=== PATIENT | female | born 1950 | race Caucasian/White ===

== ENCOUNTER 2019-09-04 19:50 | Emergency (ER) | payer MEDICARE, BC ==
[~2019-09-04] VITALS: Ht 165.1 cm; Wt 69.4 kg
--- NOTE | 2019-09-04 20:20 | NUR ---
PT BIB AMBULANCE WITH A C/O GLF FROM A LADDER ONTO THE BATHTUB. PT IS C/O DIZZINESS, BACK, CHEST AND NECK PAIN.
[2019-09-04] MEDS ORDERED: NAPROXEN 250 MG TABLET ONE (23:04)
[2019-09-04 23:11] VITALS: BP 136/75
--- NOTE | 2019-09-04 23:12 | NUR ---
Patient discharged to home in stable condition. Written and verbal after care instructions given. Patient verbalizes understanding of instruction. PT REC'D PAIN MEDICATION PRIOR TO D/C HOME. VSS. PT TAKEN TO THE CAR VIA WC. NAD NOTED.
[2019-09-04] MEDS ORDERED: NAPROXEN 500 MG TABLET PO ONE (23:30)
== END 2019-09-04 23:13 | disposition home or self-care (01) ==
LOC: ER 19:52
DX: S20.219A Contusion of unspecified front wall of thorax, initial encounter (principal); J45.909 Unspecified asthma, uncomplicated; W11.XXXA Fall on and from ladder, initial encounter; Y93.89 Activity, other specified; Y92.89 Other specified places as the place of occurrence of the external cause; Y99.8 Other external cause status
CPT/HCPCS: 70450-TC; 71111-TC; 72125-TC

== ENCOUNTER 2021-02-05 01:42 | Inpatient (IN) | payer MEDICARE, OTHER ==
[~2021-02-05] VITALS: Ht 152.4 cm; Wt 81.2 kg
[2021-02-05] MEDS ORDERED: IV NS 0.9% 1,000 ML BAG IV ONE (02:00)
--- NOTE | 2021-02-05 02:02 | NUR ---
PATIENT TO ER BED 9 C/O DIZZINESS FOR 2x DAYS. PATIENT STATES THAT HER DIZZINESS HAS BEEN ON AND OF SINCE HER CATARACT SURGERY SINCE 2x WEEK AGO. PT C/O NAUSEA AND H/A. PATIENT IS ALERT AND ORIENTED x4. DENIES SHORTNESS OF BREATH. CONNECTED TO THE MONITOR.
--- NOTE | 2021-02-05 02:11 | NUR ---
BLOOD SENT TO THE LAB AND COLLECTED BY PARTS COUNTERPERSON.
[2021-02-05 02:34] LABS: CALCIUM, SERUM 9.2 mg/dL (8.5-10.1); CARBON DIOXIDE 28 mmol/L (21-32); CHLORIDE 104 mmol/L (98-107); CREATININE 0.8 mg/dL (0.6-1.3); GLUCOSE 128 mg/dL (74-106); POTASSIUM 3.3 mmol/L (3.5-5.1); SODIUM SERUM 142 mmol/L (136-145); UREA NITROGEN, BLOOD 17 mg/dL (7-18)
[2021-02-05 02:47] LABS: ALANINE AMINOTRANSFERASE 49 U/L (12-78); ALBUMIN 3.8 g/dL (3.4-5.0); ALKALINE PHOSPHATASE 135 U/L (46-116); ASPARTATE AMINOTRANSFERASE 35 U/L (15-37); BILIRUBIN,DIRECT 0.1 mg/dL (0.0-0.2); BILIRUBIN,TOTAL 0.3 mg/dL (0.2-1.0); TOTAL PROTEIN, SERUM 7.6 g/dL (6.4-8.2)
[2021-02-05] MEDS ORDERED: MECLIZINE HCL 25 MG TABLET ONE (02:51)
[2021-02-05] MEDS ORDERED: ONDANSETRON HCL/PF 4 MG/2 ML VIAL ONE (02:51)
[2021-02-05 02:52] LABS: BASOPHILS % (AUTO) 0.4 % (0.0-2.0); EOSINOPHILS % (AUTO) 2.9 % (0.0-6.0); HEMATOCRIT 40 % (33-45); HEMOGLOBIN 13.1 g/dL (11.5-14.8); LYMPHOCYTES # (AUTO) 2.1 /CMM (0.8-4.8); LYMPHOCYTES % (AUTO) 25.5 % (20.0-44.0); MEAN CORPUSCULAR HGB CONC 33 g/dl (31.0-36.0); MEAN CORPUSCULAR VOLUME 83 fL (82-100); MONOCYTES # (AUTO) 0.6 /CMM (0.1-1.30); MONOCYTES % (AUTO) 7.7 % (2.0-12.0); NEUTROPHILS # (AUTO) 5.1 /CMM (1.8-8.9); NEUTROPHILS % (AUTO) 63.5 % (43.0-81.0); PLATELET COUNT (AUTO) 251 /CMM (150-450); RED BLOOD CELL COUNT(AUTO) 4.81 MIL/uL (4.0-5.2); WHITE BLOOD COUNT (AUTO) 8.1 K/uL (4.3-11.0)
[2021-02-05] MEDS ORDERED: ONDANSETRON HCL/PF - ER 4 MG/2 ML VIAL IV ONE (03:00)
[2021-02-05] MEDS ORDERED: MECLIZINE HCL 12.5 MG TABLET PO ONE (03:00)
--- NOTE | 2021-02-05 04:28 | NUR ---
REPORT GIVEN TO BIC RN FOR JACQUELYN.
[2021-02-05 04:35] VITALS: BP 129/75
[2021-02-05 04:39] LABS: BILIRUBIN,URINE Negative (NEGATIVE); COLOR,URINE YELLOW (YELLOW); LEUKOCYTE ESTERASE ,URINE Negative (NEGATIVE); NITRITE, URINE Negative (NEGATIVE); PROTEIN,URINE Negative (NEGATIVE); UGLUCOSE Negative (NEGATIVE); UROBILINOGEN,URINE 0.2 EU/dL (0.2)
--- NOTE | 2021-02-05 04:40 | NUR ---
PATIENT TAKEN UP TO ROOM FOR JACQUELYN.
--- NOTE | 2021-02-05 05:00 | NUR ---
CASTING WHEEL OPERATOR ADMITTING NOTES: RECEIVED PATIENT FROM ER VIA [facility] TO RM [id number] , PATIENT IS A/OX4 , AMBULATORY WITH ASSISTANCE, CC: ROOM SPINNING SENSATION 2 HR AGO FOR 2 WEEKS SINCE CATARACT SURGERY, FRENCH SPEAKING ABLE TO MAKE NEEDS KNOWN, ON TELE MONITORING WITH READING OF SINUS RYTHM, HR-82, ON ROOM AIR NO SOB NOTED, SKIN ASSESSMENT DONE NO SKIN ISSUES WAS OBSERVED, V/S ARE FOLLOWS: BP-129/75, HR-87, RR-20, TEMP- ORIENTED TO ROOM , PLACED IN BED COMFORTABLY, IN LOW POSITION, CALL LIGHTS WITHIN REACH, REMIND PATIENT TO USE THE CALL LIGHTS WHEN NEEDED ASSISTANCE, WILL CONTINUE TO MONITOR.
[2021-02-05] MEDS ORDERED: MECLIZINE HCL 12.5 MG TABLET PO PRN (07:00)
[2021-02-05] MEDS ORDERED: ONDANSETRON HCL/PF 4 MG/2 ML VIAL IVP PRN (07:00)
--- NOTE | 2021-02-05 07:00 | NUR ---
CYTOGENETICIST CLOSING NOTES: PATIENT WAS PLACED IN BED COMFORTABLY, BED IN LOW POSITION, CALL LIGHTS WITHIN REACH, NO COMPLAIN OF PAIN AND DISCOMFORT AT THIS TIME, PATIENT IS AMBULATORY WITH SUPERVISION, REMIND PATIENT TO USE CALL LIGHTS WHEN NEEDED ASSISTANCE, MEDICATION FOR FOLLOW UP WITH FAMILY AWAITING FOR REPLY, TELE READING WAS SINUS RTHYM HR82, PATIENT KEPT CLEAN AND DRY, ALL NEEDS MET ENDORSE TO INCOMING SHIFT.
--- NOTE | 2021-02-05 07:30 | NUR ---
MS OFFICE MACHINE INSPECTOR NOTES: PATIENT WAS PLACED IN BED COMFORTABLY. AWAKE AND VERBALLY RESPONSIVE, NO COMPLAIN OF PAIN AND DISCOMFORT AT THIS TIME, BED IN LOW POSITION, CALL LIGHTS WITHIN REACH, MEDICATION LIST FOR FOLLOW UP WITH FAMILY () FOR MED RECON AWAITING FOR CALL BACK, PATIENT WAS KEPT CLEAN AND DRY, WILL CONTINUE TO MONITOR.
[2021-02-05 08:00] VITALS: BP 136/77
[2021-02-05] MEDS: DOCUSATE SODIUM 100 MG CAPSULE PO SCH ×2 (08:16→16:04)
[2021-02-05] MEDS: ACETAMINOPHEN 325 MG TABLET PO PRN (08:16)
[2021-02-05] MEDS: PANTOPRAZOLE 40 MG TABLET.DR PO SCH (08:16)
[2021-02-05] MEDS ORDERED: POTASSIUM CHLORIDE 20 MEQ TAB.PRT.SR PO SCH ×2 (10:30→12:00)
[2021-02-05 11:42] VITALS: BP 132/77
[2021-02-05] MEDS ORDERED: PANT40TA49 PO (11:56)
[2021-02-05] MEDS ORDERED: ASPI-1420 PO (11:56)
[2021-02-05] MEDS ORDERED: PROP15DR EACHEYE (11:56)
[2021-02-05] MEDS ORDERED: MONT10TA22 PO (11:56)
[2021-02-05] MEDS ORDERED: ESCI10TA PO (11:56)
[2021-02-05] MEDS ORDERED: NAPR-1009 PO (11:56)
[2021-02-05] MEDS ORDERED: AZEL137S7 (11:56)
[2021-02-05] MEDS ORDERED: ALBU18HF2 INH (11:56)
[2021-02-05] MEDS ORDERED: CYCL10TA9 PO (11:56)
[2021-02-05] MEDS ORDERED: FLUT16SP16 (11:56)
[2021-02-05] MEDS ORDERED: ROSU10TA29 PO (11:56)
[2021-02-05 16:00] VITALS: BP 122/72
--- NOTE | 2021-02-05 18:08 | NUR ---
TELE CLOSING NOTE PATIENT IN BED COMFORTABLY, BED IN LOW POSITION, CALL LIGHTS WITHIN REACH, NO COMPLAIN OF PAIN AND DISCOMFORT AT THIS TIME, PATIENT IS AMBULATORY WITH SUPERVISION, REMIND PATIENT TO USE CALL LIGHTS WHEN NEEDED ASSISTANCE, MED RECON DONE TELE READING WAS SINUS RTHYM HR82, PATIENT KEPT CLEAN AND DRY, ALL NEEDS MET
[2021-02-05] MEDS ORDERED: CT SWABBABLE VALVE TRANS SET 1 EA INFUS.SET MC ONE (19:08)
[2021-02-05] MEDS ORDERED: IOHEXOL-350 100 ML VIAL IV ONE (19:08)
--- NOTE | 2021-02-05 19:15 | NUR ---
RN OPENING NOTE PATIENT IN BED, AWAKE, A/O X 4. PATIENT ABLE TO MAKE NEEDS KNOWN. NO COMPLAINS OF DIZZINESS AT THIS TIME. BREATHING EVEN AND UNLABORED, TOLERATES RA AT 98% O2 SATURATION. SAFETY MEASURES IN PLACE: BED IN LOCKED AND LOWEST POSITION, CALL LIGHT WITHIN REACH, AMBULATORY DEVICE AT BEDSIDE, SIDE RAILS UP. PATIENT ABOUT TO GO DOWN TO COMPLETE CTA CAROTID. WILL MONITOR PATIENT CLOSELY.
[2021-02-05 20:00] VITALS: BP 124/71
[2021-02-06] VITALS: BP 134/72
--- NOTE | 2021-02-06 | NUR ---
ORTHOSTATIC BP DONE PATIENT REPORTS DIZZINESS UPON SITTING UP LAYING DOWN: 136/70 HR: 72 SITTIN/74 HR:98 STANDIN/79 HR: 97 DR. QUINONEZ MADE AWARE OF THE RESULT
[2021-02-06 04:00] VITALS: BP 140/60
[2021-02-06 05:55] LABS: BASOPHILS % (AUTO) 0.6 % (0.0-2.0); EOSINOPHILS % (AUTO) 4.4 % (0.0-6.0); HEMATOCRIT 38 % (33-45); HEMOGLOBIN 12.7 g/dL (11.5-14.8); LYMPHOCYTES % (AUTO) 35.3 % (20.0-44.0); MEAN CORPUSCULAR HGB CONC 33 g/dl (31.0-36.0); MEAN CORPUSCULAR VOLUME 83 fL (82-100); MONOCYTES # (AUTO) 0.5 /CMM (0.1-1.30); MONOCYTES % (AUTO) 8.6 % (2.0-12.0); NEUTROPHILS # (AUTO) 2.9 /CMM (1.8-8.9); NEUTROPHILS % (AUTO) 51.1 % (43.0-81.0); PLATELET COUNT (AUTO) 226 /CMM (150-450); RED BLOOD CELL COUNT(AUTO) 4.62 MIL/uL (4.0-5.2); WHITE BLOOD COUNT (AUTO) 5.6 K/uL (4.3-11.0)
[2021-02-06 06:36] LABS: ALANINE AMINOTRANSFERASE 37 U/L (12-78); ALBUMIN 3.3 g/dL (3.4-5.0); ALKALINE PHOSPHATASE 107 U/L (46-116); ASPARTATE AMINOTRANSFERASE 22 U/L (15-37); BILIRUBIN,TOTAL 0.5 mg/dL (0.2-1.0); CALCIUM, SERUM 8.6 mg/dL (8.5-10.1); CARBON DIOXIDE 26 mmol/L (21-32); CHLORIDE 106 mmol/L (98-107); CREATININE 0.9 mg/dL (0.6-1.3); GLUCOSE 98 mg/dL (74-106); MAGNESIUM 1.9 mg/dL (1.8-2.4); PHOSPHORUS 4.3 mg/dL (2.5-4.9); POTASSIUM 3.7 mmol/L (3.5-5.1); SODIUM SERUM 140 mmol/L (136-145); TOTAL PROTEIN, SERUM 6.6 g/dL (6.4-8.2); UREA NITROGEN, BLOOD 15 mg/dL (7-18)
[2021-02-06 06:50] LABS: CHOLESTEROL 147 mg/dL (<200); HDL CHOLESTEROL 69 mg/dL (40-60); LDL 61 mg/dL (0-99); THYROID STIMULATING HORMONE 1.102 uIU/mL (0.358-3.74); TRIGLYCERIDES 77 mg/dL (30-150)
--- NOTE | 2021-02-06 06:56 | NUR ---
RN CLOSING NOTE PATIENT SEEN AMBULATING TO THE BATHROOM, DOES NOT COMPLAIN OF PAIN OR NAUSEA AT THIS TIME. PATIENT BREATHING EVEN AND UNLABORED, TOLERATING ROOM AIR. TELE MONITOR READS SR 71 BPM. SAFETY MEASURES MAINTAINED. ALL ORDERS CARRIED OUT. ALL NEEDS MET AND ATTENDED. WILL ENDORSE TO DAY SHIFT NURSE FOR JACQUELYN.
--- NOTE | 2021-02-06 07:23 | NUR ---
HEEL SEAT LASTER OPENING NOTE PATIENT RECIEVED IN BED, NO C/O PAIN OR NAUSEA AT THIS TIME. PATIENT BREATHING EVEN AND UNLABORED, TOLERATING ROOM AIR. TELE MONITOR READS SR 75 BPM. SAFETY MEASURES IN PLACE, ALL NEEDS MET AND ATTENDED. CALL LIGHT WITHIN REACH AND ANSWERED PROPMPTLY.
[2021-02-06 08:00] VITALS: BP 144/79
[2021-02-06] MEDS: PANTOPRAZOLE 40 MG TABLET.DR PO SCH (08:08)
[2021-02-06] MEDS: DOCUSATE SODIUM 100 MG CAPSULE PO SCH ×2 (08:08→16:08)
[2021-02-06] MEDS: ACETAMINOPHEN 325 MG TABLET PO PRN (10:10)
[2021-02-06 12:00] VITALS: BP 129/79
[2021-02-06 16:00] VITALS: BP 140/70
[2021-02-06] MEDS ORDERED: methylPREDNISolone DOSPAK(4MG) 1 PACK TAB.DS.PK PO ONE (16:30)
[2021-02-06] MEDS ORDERED: methylPREDNISolone (4MG) 4 MG TABLET (DAY #1) PO ONE (16:30)
[2021-02-06] MEDS: VALPROATE 250 MG in IV D5W 100 ML IV SCH ×2 (16:38→22:00)
[2021-02-06] MEDS ORDERED: SUMATRIPTAN SUCCINATE 25 MG TABLET PO ONE (17:00)
[2021-02-06] MEDS ORDERED: methylPREDNISolone (4MG) 4 MG TABLET (DAY #1, BEFORE DINNER) PO ONE (17:30)
--- NOTE | 2021-02-06 17:59 | NUR ---
TEAMSITE DEVELOPER CLOSING NOTE PATIENT IN BED RESTING , NO C/O PAIN OR NAUSEA OR HEADACHE AT THIS TIME AFTER SUMATRIPTAN ADMINISTRATION. PATIENT BREATHING EVEN AND UNLABORED, TOLERATING ROOM AIR. TELE MONITOR READS SR 75 BPM. SAFETY MEASURES IN PLACE, ALL NEEDS MET AND ATTENDED. CALL LIGHT WITHIN REACH AND ANSWERED PROPMPTLY.
--- NOTE | 2021-02-06 19:30 | NUR ---
RN OPENING NOTE PATIENT UP ON THE CHAIR, AWAKE, A/O X 4, FAMILY AT BEDSIDE. PATIENT ABLE TO MAKE NEEDS KNOWN. NO COMPLAINS OF DIZZINESS OR HEADACHE AT THIS TIME. BREATHING EVEN AND UNLABORED, TOLERATING ROOM AIR. TELE MONITOR READS SR 87 BPM. SAFETY MEASURES IN PLACE: BED IN LOCKED AND LOWEST POSITION, CALL LIGHT WITHIN REACH, AMBULATORY DEVICE AT BEDSIDE, SIDE RAILS UP. WILL MONITOR PATIENT CLOSELY.
[2021-02-06 20:00] VITALS: BP 144/75
[2021-02-06] MEDS ORDERED: methylPREDNISolone (4MG) 4 MG TABLET (DAY #1, HS) PO ONE (22:00)
[2021-02-07] VITALS (7 sets, daily range): BP systolic 134–150; BP diastolic 71–89
[2021-02-07] MEDS: VALPROATE 250 MG in IV D5W 100 ML IV SCH ×3 (04:41→22:13)
[2021-02-07 06:45] LABS: BASOPHILS % (AUTO) 0.1 % (0.0-2.0); HEMATOCRIT 42 % (33-45); LYMPHOCYTES # (AUTO) 0.9 /CMM (0.8-4.8); LYMPHOCYTES % (AUTO) 10.2 % (20.0-44.0); MEAN CORPUSCULAR HGB CONC 33 g/dl (31.0-36.0); MEAN CORPUSCULAR VOLUME 82 fL (82-100); MONOCYTES # (AUTO) 0.1 /CMM (0.1-1.30); MONOCYTES % (AUTO) 1.3 % (2.0-12.0); NEUTROPHILS # (AUTO) 7.9 /CMM (1.8-8.9); NEUTROPHILS % (AUTO) 88.4 % (43.0-81.0); PLATELET COUNT (AUTO) 297 /CMM (150-450); RED BLOOD CELL COUNT(AUTO) 5.14 MIL/uL (4.0-5.2); WHITE BLOOD COUNT (AUTO) 8.9 K/uL (4.3-11.0)
[2021-02-07 07:09] LABS: CALCIUM, SERUM 9.4 mg/dL (8.5-10.1); CREATININE 0.9 mg/dL (0.6-1.3); PHOSPHORUS 4.6 mg/dL (2.5-4.9); POTASSIUM 4.1 mmol/L (3.5-5.1)
--- NOTE | 2021-02-07 07:23 | NUR ---
RN CLOSING NOTE PATIENT AWAKE, A/O X 4, FAMILY AT BEDSIDE. NO COMPLAINS OF DIZZINESS OR HEADACHE AT THIS TIME. BREATHING EVEN AND UNLABORED, TOLERATING ROOM AIR. TELE MONITOR READS SR 81 BPM. SAFETY MEASURES MAINTAINED. ALL NEEDS MET AND ATTENDED. ALL ORDERS CARRIED OUT. ENDORSED TO DAY SHIFT NURSE FOR JACQUELYN.
[2021-02-07] MEDS ORDERED: methylPREDNISolone (4MG) 4 MG TABLET (DAY#2 ACB) PO ONE (07:30)
[2021-02-07] MEDS: PANTOPRAZOLE 40 MG TABLET.DR PO SCH (08:03)
--- NOTE | 2021-02-07 08:25 | NUR ---
PATROL SERGEANT OPENING NOTE RECEIVED PATIENT IN BED. A/O X4. ON ROOM AIR, NO SOB NOTED. IN NO APPARENT DISTRESS. TELE READING SHOWS ST 104. DENIES ANY PAIN OR DISCOMFORT AT THIS TIME. IV ACCESS ON L AC #18, INTACT. SAFETY MEASURES MAINTAINED. BED IN LOWEST POSITION, BRAKES LOCKED. SIDE RAILS UP X2. CALL LIGHT WITHIN REACH. WILL CONTINUE PLAN OF CARE.
[2021-02-07] MEDS: DOCUSATE SODIUM 100 MG CAPSULE PO SCH ×2 (09:15→16:34)
[2021-02-07] MEDS ORDERED: methylPREDNISolone (4MG) 4 MG TABLET (DAY#2,PC LUNCH) PO ONE (12:30)
--- NOTE | 2021-02-07 12:59 | NUR ---
RN NOTE PATIENT WAS BROUGHT DOWN FOR US GUIDED THYROID BIOPSY
--- NOTE | 2021-02-07 14:35 | NUR ---
RN NOTE PATIENT IS BACK ON HER ROOM
[2021-02-07] MEDS: ACETAMINOPHEN 325 MG TABLET PO PRN (14:53)
[2021-02-07] MEDS: SUMATRIPTAN SUCCINATE 25 MG TABLET PO PRN (16:35)
[2021-02-07] MEDS ORDERED: methylPREDNISolone (4MG) 4 MG TABLET (DAY#2, PC DINNER) PO ONE (17:30)
--- NOTE | 2021-02-07 18:14 | NUR ---
MS RN CLOSING NOTE PATIENT RESTING IN BED. A/O X4. ON ROOM AIR, NO SOB NOTED. NO S/S OF RESPIRATORY DISTRESS. NO REPORTS OF ANY PAIN OR DISCOMFORT AT THIS TIME. IV ACCESS ON L AC #18, INTACT AND PATENT. IMITREX PRN GIVEN AT 1635 FOR HEADACHE. ALL DUE MEDS GIVEN ORDERED. ABLE TO MAKE NEEDS KNOWN. SAFETY MEASURES MAINTAINED. BED IN LOWEST POSITION, BRAKES LOCKED. SIDE RAILS UP X2. CALL LIGHT WITHIN REACH. WILL ENDORSE CONTINUITY OF CARE TO ONCOMING SHIFT.
--- NOTE | 2021-02-07 19:21 | NUR ---
MS RN: CONTINUITY OF CARE Patient in bed, awake, A/O x4. Tolerating room air, no c/o shortness of breath. Independent with ADL's/ mobility, no c/o dizziness, denies headache. Maintained safety.
[2021-02-07] MEDS ORDERED: methylPREDNISolone (4MG) 4 MG TABLET (DAY#2, HS) PO ONE (21:00)
[2021-02-08] MEDS: VALPROATE 250 MG in IV D5W 100 ML IV SCH ×2 (05:32→13:27)
--- NOTE | 2021-02-08 06:23 | NUR ---
MS RN: END OF SHIFT REPORT Patient in bed. No episode of headache in the last 11 hours. On Medrol pack/Depacon IV/Imitrex PRN for treatment of headache. Ambulates independently, no episode of dizziness, no c/o pain. Will endorse to oncoming RN.
[2021-02-08 07:24] LABS: BASOPHILS % (AUTO) 0.2 % (0.0-2.0); HEMATOCRIT 42 % (33-45); LYMPHOCYTES # (AUTO) 1.3 /CMM (0.8-4.8); LYMPHOCYTES % (AUTO) 11.5 % (20.0-44.0); MEAN CORPUSCULAR HGB CONC 34 g/dl (31.0-36.0); MEAN CORPUSCULAR VOLUME 82 fL (82-100); MONOCYTES # (AUTO) 0.5 /CMM (0.1-1.30); MONOCYTES % (AUTO) 4.5 % (2.0-12.0); NEUTROPHILS # (AUTO) 9.2 /CMM (1.8-8.9); NEUTROPHILS % (AUTO) 83.8 % (43.0-81.0); PLATELET COUNT (AUTO) 310 /CMM (150-450); RED BLOOD CELL COUNT(AUTO) 5.08 MIL/uL (4.0-5.2); WHITE BLOOD COUNT (AUTO) 10.9 K/uL (4.3-11.0)
[2021-02-08] MEDS ORDERED: methylPREDNISolone (4MG) 4 MG TABLET (DAY#3,ACB) PO ONE (07:30)
--- NOTE | 2021-02-08 07:30 | NUR ---
PT RECEIVED RESTING COMFORTABLY IN BED. NO S/S OR C/O PAIN OR DISTRESS NOTED. SIDE RAILS UP X2, CALL LIGHT LEFT WITHIN REACH. WILL CONTINUE PLAN OF CARE.
[2021-02-08 07:31] LABS: ALBUMIN 3.7 g/dL (3.4-5.0); BILIRUBIN,TOTAL 0.4 mg/dL (0.2-1.0); CALCIUM, SERUM 9.2 mg/dL (8.5-10.1); CREATININE 0.9 mg/dL (0.6-1.3); PHOSPHORUS 4.5 mg/dL (2.5-4.9); POTASSIUM 4.1 mmol/L (3.5-5.1)
[2021-02-08] MEDS: PANTOPRAZOLE 40 MG TABLET.DR PO SCH (07:43)
[2021-02-08] MEDS: DOCUSATE SODIUM 100 MG CAPSULE PO SCH (07:43)
[2021-02-08] MEDS: SUMATRIPTAN SUCCINATE 25 MG TABLET PO PRN (07:43)
[2021-02-08] MEDS: ACETAMINOPHEN 325 MG TABLET PO PRN (11:17)
[2021-02-08] MEDS ORDERED: methylPREDNISolone (4MG) 4 MG TABLET (DAY#3,PC LUNCH) PO ONE (12:30)
[2021-02-08] MEDS ORDERED: SUMATRIPTAN SUCCINATE 100 MG TABLET PO STA (15:31)
--- NOTE | 2021-02-08 16:48 | NUR ---
DISCHARGE INSTRUCTIONS GIVEN ORDERED. ENCOURAGED TO FOLLOW UP WITH PMD INSTRUCTED. ALL QUESTIONS AND CONCERNS ADDRESSED, PATIENT VERBALIZED UNDERSTANDING. MEDICATION RECONCILIATION FORM COMPLETED. COPY GIVE TO PATIENT. IV REMOVED WITH CATHETER INTACT, PRESSURE DRESSING APPLIED. PATIENT TAKEN TO VEHICLE VIA WHEELCHAIR WITH ALL PERSONAL BELONGINGS, ACCOMPANIED BY STAFF AND FAMILY MEMBER. NO DISTRESS NOTED AT TIME OF DEPARTURE.
[2021-02-08] MEDS ORDERED: methylPREDNISolone (4MG) 4 MG TABLET (DAY#3,PC DINNER) PO ONE (17:30)
[2021-02-08] MEDS ORDERED: methylPREDNISolone (4MG) 4 MG TABLET (DAY#3, HS) PO ONE (22:00)
[2021-02-09] MEDS ORDERED: methylPREDNISolone (4MG) 4 MG TABLET (DAY #4, ACB) PO ONE (07:30)
[2021-02-09] MEDS ORDERED: methylPREDNISolone (4MG) 4 MG TABLET (DAY #4, PC LUNCH) PO ONE (12:30)
[2021-02-09] MEDS ORDERED: methylPREDNISolone (4MG) 4 MG TABLET (DAY#4 HS) PO ONE (22:00)
[2021-02-10] MEDS ORDERED: methylPREDNISolone (4MG) 4 MG TABLET (DAY#5, ACB) PO ONE (07:30)
[2021-02-10] MEDS ORDERED: methylPREDNISolone (4MG) 4 MG TABLET (DAY#5,HS) PO ONE (22:00)
[2021-02-11] MEDS ORDERED: methylPREDNISolone (4MG) 4 MG TABLET (DAY#6,ACB) PO ONE (07:30)
== END 2021-02-08 16:45 | disposition home or self-care (01) | DRG 103 ==
LOC: ER 01:45 → MED 04:19 → TELE 04:46 → MED 02-07 12:03
PROVIDERS: ADMIT Student in an Organized Health Care Education/Training Program
PROC: 0G9G3ZX Drainage of Left Thyroid Gland Lobe, Percutaneous Approach, Diagnostic (ICD-10-PCS; principal; 2021-02-07)
DX: G43.109 Migraine with aura, not intractable, without status migrainosus (principal); J45.909 Unspecified asthma, uncomplicated; E87.6 Hypokalemia; H26.9 Unspecified cataract; E04.1 Nontoxic single thyroid nodule; Z20.822 Contact with and (suspected) exposure to COVID-19
CPT/HCPCS: 10021; 36415; 70450-TC; 70496-TC; 70498-TC; 71045-TC; 76536-TC; 76942-TC; 80048-TC; 80053-TC; 80061-TC; 80076-TC; 83735-TC; 83880; 84100-TC; 84443-TC; 84484-TC; 85025-TC; 85730-TC; 87081-TC; 87086-TC; 88173-TC; 88305-TC; 93307-TC; 93880-TC; C9803; G0378; J2405; J3490; J7030; J7050; J7060; J7509; J8597; Q9967

== ENCOUNTER 2024-08-03 17:31 | Emergency (ER) | payer MEDICARE, OTHER ==
[~2024-08-03] VITALS: Ht 165.1 cm; Wt 83.9 kg
[~2024-08-03 17:31] MED LIST: ALBU18HF2 INH; ASPI-1420 PO; AZEL137S7; CYCL10TA9 PO; ESCI10TA PO; FLUT16SP16; MONT10TA22 PO; NAPR-1009 PO; PANT40TA49 PO; PROP15DR EACHEYE; ROSU10TA29 PO
[2024-08-03 17:49] VITALS: TEMP 98.1
[2024-08-03] MEDS ORDERED: PANTOPRAZOLE 40 MG VIAL ONE (18:08)
[2024-08-03] MEDS ORDERED: ALPRAZOLAM 0.25 MG TABLET ONE (18:09)
[2024-08-03] MEDS ORDERED: FAMOTIDINE/PF INJ 20 MG/2 ML VIAL IV ONE (18:09)
[2024-08-03] MEDS ORDERED: ONDANSETRON HCL/PF 4 MG/2 ML VIAL ONE (18:09)
[2024-08-03] MEDS: ALPRAZOLAM 0.25 MG TABLET PO ONE (18:19)
[2024-08-03] MEDS: ONDANSETRON HCL/PF 4 MG/2 ML VIAL IVP ONE (18:19)
[2024-08-03] MEDS: IV NS 0.9% 1,000 ML BAG IV ONE (18:20)
[2024-08-03] MEDS: PANTOPRAZOLE 40 MG VIAL IV ONE (18:20)
[2024-08-03] MEDS: FAMOTIDINE/PF INJ 20 MG/2 ML VIAL IV ONE (18:23)
[2024-08-03 18:33] LABS: BASOPHILS # (AUTO) 0.1 K/uL (0.0-0.2); BASOPHILS % (AUTO) 0.6 % (0.0-2.0); EOSINOPHILS # (AUTO) 0.2 K/uL (0.0-0.7); HEMATOCRIT 40 % (33-45); HEMOGLOBIN 13.2 g/dL (11.5-14.8); LYMPHOCYTES # (AUTO) 1.3 K/uL (0.8-4.8); LYMPHOCYTES % (AUTO) 13.6 % (20.0-44.0); MEAN CORPUSCULAR HEMOGLOBIN 27 PG (26.0-33.0); MEAN CORPUSCULAR HGB CONC 33 g/dl (31.0-36.0); MEAN CORPUSCULAR VOLUME 81 fL (82-100); MONOCYTES # (AUTO) 0.6 K/uL (0.1-1.30); MONOCYTES % (AUTO) 6.8 % (2.0-12.0); NEUTROPHILS # (AUTO) 7.3 K/uL (1.8-8.9); PLATELET COUNT (AUTO) 276 K/uL (150-450); RED CELL DISTRIBUTION WIDTH 13.8 % (11.5-15.0); WHITE BLOOD COUNT (AUTO) 9.5 K/uL (4.3-11.0)
[2024-08-03] MEDS ORDERED: MAG HYDROX/AL HYDROX/SIMETH 30 ML UDC ONE (18:34)
[2024-08-03] MEDS ORDERED: LIDOCAINE VISCOUS 2% UD 15 ML UDC ONE (18:34)
[2024-08-03] MEDS: MAG HYDROX/AL HYDROX/SIMETH 30 ML UDC PO ONE (18:45)
[2024-08-03] MEDS: LIDOCAINE VISCOUS 2% UD 15 ML UDC MM ONE (18:45)
[2024-08-03 18:47] LABS: CALCIUM, SERUM 8.9 mg/dL (8.5-10.1); CARBON DIOXIDE 30 mmol/L (21-32); CHLORIDE 104 mmol/L (98-107); CREATININE 0.9 mg/dL (0.6-1.3); GLUCOSE 136 mg/dL (74-106); POTASSIUM 3.8 mmol/L (3.5-5.1); SODIUM SERUM 140 mmol/L (136-145); UREA NITROGEN, BLOOD 15 mg/dL (7-18)
[2024-08-03 18:52] LABS: ALANINE AMINOTRANSFERASE 25 U/L (12-78); ALBUMIN 3.6 g/dL (3.4-5.0); ALKALINE PHOSPHATASE 108 U/L (46-116); ASPARTATE AMINOTRANSFERASE 20 U/L (15-37); BILIRUBIN,DIRECT 0.1 mg/dL (0.0-0.2); BILIRUBIN,TOTAL 0.4 mg/dL (0.2-1.0); LIPASE 14 U/L (16-77); TOTAL PROTEIN, SERUM 7.4 g/dL (6.4-8.2)
[2024-08-03 18:59] LABS: LACTIC ACID 2.5 mmol/L (0.4-2.0)
[2024-08-03 21:16] LABS: COLOR,URINE STRAW (YELLOW)
[2024-08-03 21:17] LABS: APPEARANCE,URINE CLEAR (CLEAR); BILIRUBIN,URINE NEGATIVE (NEGATIVE); BLOOD, URINE NEGATIVE Ery/uL (NEGATIVE); KETONES,URINE NEGATIVE (NEGATIVE); LEUKOCYTE ESTERASE ,URINE NEGATIVE (NEGATIVE); NITRITE, URINE NEGATIVE (NEGATIVE); PROTEIN,URINE NEGATIVE (NEGATIVE); UGLUCOSE NEGATIVE (NEGATIVE); UROBILINOGEN,URINE 0.2 EU/dL (0.2)
[2024-08-03] MEDS ORDERED: HYDR-500 PO (22:07)
[2024-08-03] MEDS ORDERED: DICY10CA37 PO (22:07)
[2024-08-03] MEDS ORDERED: FAMO-131 PO (22:07)
[2024-08-03] MEDS ORDERED: KETOROLAC TROMETHAMINE 15 MG/ML VIAL ONE (22:27)
[2024-08-03] MEDS: KETOROLAC TROMETHAMINE 15 MG/ML VIAL IV ONE (22:32)
[2024-08-03 23:15] VITALS: BP 156/88; O2SAT 98
== END 2024-08-03 22:45 | disposition home or self-care (01) ==
LOC: ER 17:34
DX: K21.9 Gastro-esophageal reflux disease without esophagitis (principal); R10.13 Epigastric pain; F41.9 Anxiety disorder, unspecified; J06.9 Acute upper respiratory infection, unspecified; B97.89 Other viral agents as the cause of diseases classified elsewhere; I10 Essential (primary) hypertension; R94.31 Abnormal electrocardiogram [ECG] [EKG]; Z79.82 Long term (current) use of aspirin; Z79.899 Other long term (current) drug therapy
CPT/HCPCS: 99285; 74176; 96374; 96375; 71045; 96361; 93005; 85025; 80048; 87086; 83605 ×2; 83690; 80076; 81003; 36415; 84484; J3490; J2405; J7030; J2470; J1885

== ENCOUNTER 2024-08-08 01:58 | Emergency (ER) | payer MEDICARE, OTHER ==
[~2024-08-08] VITALS: Ht 165.1 cm; Wt 75.7 kg
[~2024-08-08 01:58] MED LIST changes: +DICY10CA37 PO; +FAMO-131 PO; +HYDR-500 PO
[2024-08-08] MEDS: KETOROLAC TROMETHAMINE 15 MG/ML VIAL IM ONE (03:00)
[2024-08-08 03:01] LABS: BASOPHILS % (AUTO) 0.6 % (0.0-2.0); EOSINOPHILS # (AUTO) 0.3 K/uL (0.0-0.7); EOSINOPHILS % (AUTO) 3.8 % (0.0-6.0); HEMATOCRIT 43 % (33-45); LYMPHOCYTES # (AUTO) 1.6 K/uL (0.8-4.8); LYMPHOCYTES % (AUTO) 19.2 % (20.0-44.0); MEAN CORPUSCULAR HEMOGLOBIN 27 PG (26.0-33.0); MEAN CORPUSCULAR HGB CONC 33 g/dl (31.0-36.0); MEAN CORPUSCULAR VOLUME 84 fL (82-100); MONOCYTES # (AUTO) 0.9 K/uL (0.1-1.30); MONOCYTES % (AUTO) 10.2 % (2.0-12.0); NEUTROPHILS # (AUTO) 5.6 K/uL (1.8-8.9); NEUTROPHILS % (AUTO) 66.2 % (43.0-81.0); PLATELET COUNT (AUTO) 294 K/uL (150-450); RED BLOOD CELL COUNT(AUTO) 5.11 MIL/uL (4.0-5.2); RED CELL DISTRIBUTION WIDTH 13.8 % (11.5-15.0); WHITE BLOOD COUNT (AUTO) 8.4 K/uL (4.3-11.0)
[2024-08-08] MEDS ORDERED: KETOROLAC TROMETHAMINE 15 MG/ML VIAL ONE (03:12)
[2024-08-08 03:14] LABS: ALANINE AMINOTRANSFERASE 27 U/L (12-78); ALBUMIN 3.6 g/dL (3.4-5.0); ALKALINE PHOSPHATASE 126 U/L (46-116); ASPARTATE AMINOTRANSFERASE 21 U/L (15-37); BILIRUBIN,DIRECT 0.1 mg/dL (0.0-0.2); BILIRUBIN,TOTAL 0.3 mg/dL (0.2-1.0); CARBON DIOXIDE 29 mmol/L (21-32); CHLORIDE 102 mmol/L (98-107); CREATININE 1.1 mg/dL (0.6-1.3); GLUCOSE 128 mg/dL (74-106); LIPASE 14 U/L (16-77); POTASSIUM 3.7 mmol/L (3.5-5.1); SODIUM SERUM 139 mmol/L (136-145); TOTAL PROTEIN, SERUM 7.5 g/dL (6.4-8.2); UREA NITROGEN, BLOOD 11 mg/dL (7-18)
[2024-08-08 04:58] LABS: APPEARANCE,URINE Clear (CLEAR); BILIRUBIN,URINE Negative (NEGATIVE); BLOOD, URINE Trace-lysed Ery/uL (NEGATIVE); COLOR,URINE YELLOW (YELLOW); KETONES,URINE Negative (NEGATIVE); LEUKOCYTE ESTERASE ,URINE Small (NEGATIVE); NITRITE, URINE Negative (NEGATIVE); PROTEIN,URINE Negative (NEGATIVE); UGLUCOSE Negative (NEGATIVE); UROBILINOGEN,URINE 0.2 EU/dL (0.2)
[2024-08-08 05:16] LABS: ADD URINE CULTURE YES; BACTERIA,URINE 1+ /HPF (None Seen); RBC,URINE 0-2 /HPF (0-2)
[2024-08-08] MEDS ORDERED: CEFTRIAXONE 1GM BAG (ER ONLY) 50 ML IV ONE (05:22)
[2024-08-08] MEDS: CEFTRIAXONE 1GM BAG (ER ONLY) 1 GM/50 ML PIGGYBACK IV ONE (05:30)
[2024-08-08] MEDS ORDERED: CEFP200T14 PO (07:08)
[2024-08-08 08:12] VITALS: BP 135/87; TEMP 98; O2SAT 100
== END 2024-08-08 08:13 | disposition home or self-care (01) ==
LOC: ER 02:09
DX: K59.00 Constipation, unspecified (principal); F41.9 Anxiety disorder, unspecified; Z79.82 Long term (current) use of aspirin; Z79.899 Other long term (current) drug therapy
CPT/HCPCS: 99284; 74176; 96365; 85025; 80048; 83690; 80076; 81001; 36415; 96372; J0696; J1885

== ENCOUNTER 2024-11-08 12:41 | Emergency (ER) | payer MEDICARE, OTHER ==
[~2024-11-08] VITALS: Ht 167.6 cm; Wt 84.8 kg
[~2024-11-08 12:41] MED LIST changes: +CEFP200T14 PO
[2024-11-08] MEDS ORDERED: LIDOCAINE 5% (PATCH) 1 EA PATCH TP ONE (13:29)
[2024-11-08] MEDS ORDERED: CYCLOBENZAPRINE 10 MG TABLET ONE (13:30)
[2024-11-08] MEDS ORDERED: NAPROXEN 250 MG TABLET ONE (13:30)
[2024-11-08] MEDS: CYCLOBENZAPRINE 10 MG TABLET PO ONE (13:39)
[2024-11-08] MEDS: LIDOCAINE 5% (PATCH) 1 EA PATCH TP SCH (13:40)
[2024-11-08] MEDS: NAPROXEN 250 MG TABLET PO ONE (13:40)
[2024-11-08 14:00] LABS: EOSINOPHILS # (AUTO) 0.2 K/uL (0.0-0.7)
[2024-11-08 14:02] LABS: APPEARANCE,URINE CLEAR (CLEAR); BILIRUBIN,URINE NEGATIVE (NEGATIVE); BLOOD, URINE NEGATIVE Ery/uL (NEGATIVE); COLOR,URINE YELLOW (YELLOW); KETONES,URINE NEGATIVE (NEGATIVE); LEUKOCYTE ESTERASE ,URINE 1+ (NEGATIVE); NITRITE, URINE NEGATIVE (NEGATIVE); PROTEIN,URINE NEGATIVE (NEGATIVE); UGLUCOSE NEGATIVE (NEGATIVE); UROBILINOGEN,URINE 0.2 EU/dL (0.2)
[2024-11-08 14:03] LABS: CALCIUM, SERUM 8.9 mg/dL (8.5-10.1); CREATININE 0.8 mg/dL (0.6-1.3)
[2024-11-08 14:06] LABS: BASOPHILS % (AUTO) 0.7 % (0.0-2.0); HEMATOCRIT 42 % (33-45); HEMOGLOBIN 14.1 g/dL (11.5-14.8); LYMPHOCYTES # (AUTO) 1.8 K/uL (0.8-4.8); LYMPHOCYTES % (AUTO) 27.5 % (20.0-44.0); MEAN CORPUSCULAR HEMOGLOBIN 27 PG (26.0-33.0); MEAN CORPUSCULAR HGB CONC 34 g/dl (31.0-36.0); MEAN CORPUSCULAR VOLUME 81 fL (82-100); MONOCYTES # (AUTO) 0.6 K/uL (0.1-1.30); MONOCYTES % (AUTO) 9.4 % (2.0-12.0); NEUTROPHILS # (AUTO) 3.8 K/uL (1.8-8.9); NEUTROPHILS % (AUTO) 59.4 % (43.0-81.0); PLATELET COUNT (AUTO) 286 K/uL (150-450); RED BLOOD CELL COUNT(AUTO) 5.16 MIL/uL (4.0-5.2); RED CELL DISTRIBUTION WIDTH 13.7 % (11.5-15.0); WHITE BLOOD COUNT (AUTO) 6.4 K/uL (4.3-11.0)
[2024-11-08 14:15] LABS: ADD URINE CULTURE YES; BACTERIA,URINE Few /HPF (None Seen); RBC,URINE 0-2 /HPF (0-2); SQUAMOUS EPITHELIAL CELL,UR Moderate /HPF (None Seen)
[2024-11-08] MEDS ORDERED: NAPR-1009 PO (14:31)
[2024-11-08] MEDS ORDERED: CEPH500T PO (14:31)
[2024-11-08] MEDS ORDERED: CEPHALEXIN MONOHYDRATE 500 MG CAPSULE PO ONE (14:38)
[2024-11-08] MEDS: CEPHALEXIN MONOHYDRATE 500 MG CAPSULE PO ONE (14:42)
[2024-11-08 14:46] VITALS: BP 148/72; TEMP 98.5; O2SAT 98
== END 2024-11-08 14:47 | disposition home or self-care (01) ==
LOC: ER 12:41
DX: N39.0 Urinary tract infection, site not specified (principal); M54.50 Low back pain, unspecified; J45.909 Unspecified asthma, uncomplicated; Z79.82 Long term (current) use of aspirin; Z79.899 Other long term (current) drug therapy; G89.29 Other chronic pain
CPT/HCPCS: 36415; 80048-TC; 81001; 85025-TC; 87086-TC

== ENCOUNTER 2025-05-21 10:23 | Emergency (ER) | payer MEDICARE, OTHER ==
[~2025-05-21] VITALS: Ht 165.1 cm; Wt 75.7 kg
[~2025-05-21 10:23] MED LIST changes: +CEPH500T PO
[2025-05-21 10:45] VITALS: TEMP 98
[2025-05-21 11:26] LABS: PLATELET COUNT (AUTO) 228 K/uL (150-450); RED BLOOD CELL COUNT(AUTO) 4.60 MIL/uL (4.0-5.2); RED CELL DISTRIBUTION WIDTH 13.7 % (11.5-15.0); WHITE BLOOD COUNT (AUTO) 5.5 K/uL (4.3-11.0)
[2025-05-21 11:34] LABS: CALCIUM, SERUM 9.0 mg/dL (8.5-10.1); CREATININE 0.7 mg/dL (0.6-1.3); SODIUM SERUM 140 mmol/L (136-145); UREA NITROGEN, BLOOD 8 mg/dL (7-18)
[2025-05-21 11:43] LABS: ASPARTATE AMINOTRANSFERASE 22 U/L (15-37); TOTAL PROTEIN, SERUM 6.8 g/dL (6.4-8.2)
[2025-05-21 12:41] LABS: APPEARANCE,URINE CLEAR (CLEAR); BLOOD, URINE Negative Ery/uL (NEGATIVE); LEUKOCYTE ESTERASE ,URINE Negative (NEGATIVE); UGLUCOSE Negative (NEGATIVE)
[2025-05-21 12:42] LABS: NITRITE, URINE NEGATIVE (NEGATIVE)
[2025-05-21] MEDS ORDERED: IBUP-1490 PO (13:08)
[2025-05-21] MEDS ORDERED: ACET-73 PO (13:08)
[2025-05-21] MEDS ORDERED: KETOROLAC TROMETHAMINE 15 MG/ML VIAL ONE (13:14)
[2025-05-21] MEDS: KETOROLAC TROMETHAMINE 15 MG/ML VIAL IM ONE (13:21)
[2025-05-21 13:26] VITALS: BP 150/84; O2SAT 98
== END 2025-05-21 13:26 | disposition home or self-care (01) ==
LOC: ER 10:35
DX: S32.010A Wedge compression fracture of first lumbar vertebra, initial encounter for closed fracture (principal); Z79.82 Long term (current) use of aspirin; Z79.899 Other long term (current) drug therapy; X58.XXXA Exposure to other specified factors, initial encounter; Y93.89 Activity, other specified; Y92.89 Other specified places as the place of occurrence of the external cause; Y99.8 Other external cause status
CPT/HCPCS: 99285; 74176; 96372; 85025; 80048; 83690; 80076; 81003; 36415; J1885